=== PATIENT | female | born 1980 | race Asian ===

== ENCOUNTER → 2023-11-06 14:09 | Outpatient (REF) | payer OTHER, SELFPAY | LOC: WDC 14:09 | PROVIDERS: ATTENDING PHYSICIAN Obstetrics & Gynecology; FAMILY PHYSICIAN Family Medicine | DX: N64.4 Mastodynia (principal) | CPT/HCPCS: 76642 ==

== ENCOUNTER → 2023-11-13 08:05 | Outpatient (REF) | payer OTHER, SELFPAY ==
--- NOTE | 2023-11-13 13:35 | OID.BR.INTR ---
[facility]IND[facility] Breast Navigator - Initial
- -
Date of Contact: 11/13/23
Met with patient. Patient given written information on navigator services. She is current patient at [facility] and will follow up there.
--- NOTE | 2023-11-15 10:03 | OID.BRR ---
Breast Navigator Note
- Patient Treatment
Type of Visit: Revisit
Treatment Site: Other (Existing [facility] patient)
- Biopsy #1
Biopsy Date: 11/13/23
Biopsy Location: Right Breast
Biopsy Result: Positive
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
- Notes
Diagnosis:
Treatment Site:
Medical Oncologist:
Radiation Oncologist:
Biopsy Date: 11/13/23
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
Surgery Date:
Surgeon:
Date Comments
11/15/23 Called patient today as follow up to biopsy results. She confirms she will follow up with her physicians at [facility]. Advised her to contact me if she needs assistance with obtaining any records.
== END ==
LOC: WDC 08:05
PROVIDERS: ATTENDING PHYSICIAN Obstetrics & Gynecology; FAMILY PHYSICIAN Family Medicine
DX: N63.11 Unspecified lump in the right breast, upper outer quadrant (principal)
CPT/HCPCS: 88305; 19083; 77065; 88341; 88342; 88360; A4648

== ENCOUNTER → 2023-12-05 08:31 | Outpatient (REF) | payer BC, SELFPAY | LOC: RAD 08:31 | PROVIDERS: ATTENDING PHYSICIAN Internal Medicine; FAMILY PHYSICIAN Nurse Practitioner; REFERRING PHYSICIAN Registered Nurse Oncology | DX: C50.111 Malignant neoplasm of central portion of right female breast (principal); C50.911 Malignant neoplasm of unspecified site of right female breast | CPT/HCPCS: 78306; A9503 ==